=== PATIENT | female | born 1995 | race Caucasian/White ===

== ENCOUNTER 2018-05-23 11:29 | Emergency (ER) | payer OTHER, SELFPAY ==
[2018-05-23 11:47] VITALS: BP 133/70; PULSE 92; RESP 16; TEMP 36.8; O2SAT 98; BMI 24.7
--- NOTE | 2018-05-23 12:24 | ED.HA ---
HPI - Headache <JULIUS Hernandez - Last Filed: 05/23/18 13:20> General Chief Complaint: Headache Stated Complaint: HEADACHE, LUMP BEHIND EAR Time Seen by Provider: 05/23/18 12:24 Source: patient Mode of arrival: ambulatory Limitations: no limitations History of Present Illness HPI Narrative: c/o consistent daily headaches for 3 mos or longer, saw here pcp at [facility] the other day, labs done, and pending mri scheduled, headache just keeps coming back so she came in, has not taken any meds for it MD Complaint: headache Onset (ago): month(s) (3) Onset description: gradual Location: right, frontal, temporal and parietal Severity: moderate Quality: throbbing Exacerbating factors: none Associated symptoms: none Treatments prior to arrival: none Related Data Previous Rx's Medication Instructions Recorded tramadol [Ultram] 50 mg PO Q6H PRN #20 tab 05/23/18 Allergies Allergy/AdvReac Type Severity Reaction Status Date / Time No Known Allergies Allergy Uncoded 05/23/18 11:55 <Rosalinda Sotelo DO - Last Filed: 05/24/18 07:45> History of Present Illness HPI Narrative: Patient requests to be evaluated by a different provider. 23-year-old female complaining of headaches ongoing for 3-4 months. She says over the last week at it has gotten worse and over the last 2 days she has had worsening symptoms. Over the last 2 days she has had vision changes and persistent vomiting. No blacking of vision or persistent vision loss. But she does have some blurry vision in her right eye. She feels like she has a lump behind her right ear is a. She has been checked multiple times for infections as he has never had an ear infection. She denies having any fever no neck pain no numbness tingling or weakness. She does typically get headaches on her right side she takes NSAIDs for than the usually help. However this headache is abnormal for her. She was seen evaluated at the [facility] yesterday she is scheduled for an MRI next week. She had blood work last week as well which she said is normal. MD Complaint: headache Review of Systems <JULIUS Hernandez - Last Filed: 05/23/18 13:20> Review of Systems All systems reviewed & are unremarkable except as noted in HPI and below Constitutional Reports as per HPI and Reports headache(s) Eyes Denies blurry vision, Denies change in vision and Denies loss of vision ENT Ears, Nose, Mouth, and Throat: Denies vertigo, Denies dizziness, Denies otalgia, Reports headache(s), Denies nasal congestion, Denies nasal discharge and Denies neck pain Cardiovascular Denies chest pain and Denies dyspnea Respiratory Denies dyspnea Gastrointestinal Gastrointestinal: Denies vomiting Musculoskeletal Denies back pain, Denies neck pain and Denies numbness Neurologic Reports as per HPI, Denies vertigo, Denies dizziness, Reports headache(s), Denies focal weakness, Denies loss of vision, Denies numbness and Denies other visual disturbances Exam <JULIUS Hernandez - Last Filed: 05/23/18 13:20> Initial Vital Signs Initial Vital Signs: Vital Signs Temperature 98.3 F 05/23/18 11:47 Pulse Rate 92 H 05/23/18 11:47 Respiratory Rate 16 05/23/18 11:47 Blood Pressure 133/70 05/23/18 11:47 Pulse Oximetry 98 05/23/18 11:47 Const General: cooperative, healthy appearing, comfortable, well developed and well groomed Nutritional Appearance: average body habitus Orientation: alert, awake and oriented x3 HENMT Head: normal to inspection, normocephalic and atraumatic Ears: hearing grossly normal bilaterally, external ears normal, TM's normal bilaterally and mastoids normal Nose: external nose normal and nares normal Face and sinus: normal facial exam and sinuses tender Mouth: oral mucosae normal Teeth and gingiva: dentition normal Throat: posterior oropharynx normal Eyes General: appearance normal, both eyes and all related structures Visual Bartlett: normal visual bartlett by confrontation Alignment and Position: alignment normal Eyelids: eyelids normal Conjunctivae: conjunctivae normal Sclera: sclerae normal Cornea: corneas normal Pupils: PERRL EOM: EOM intact bilaterally Direct ophthalmoscopy: normal light reflex Neck Neck: normal visual inspection, full ROM, no meningeal signs, trachea midline, supple and No lymphadenopathy Chest Chest: normal inspection of the chest Resp Effort & Inspection: normal respiratory effort and able to speak in complete sentences Auscultation: clear to auscultation bilaterally Cardio Palpation: normal PMI Rate: regular rate Rhythm: regular rhythm Heart Sounds: S1 normal and S2 normal Back/Spine/Pelvis Back: normal to inspection Cervical Spine: cervical ROM normal Thoracic/Lumbar Spine: thoraco-lumbar ROM normal Skin General: no rashes or lesions noted, elasticity normal and turgor normal Neuro General: alert, awake and oriented x3 Cranial Nerves: CN's II-XI intact bilaterally Cognition: normal cognition Speech: speech normal Gait: normal gait Motor: muscle tone normal throughout Sensory Exam: no sensory deficits noted Extrem General: normal to inspection and full ROM Psych Appearance: grossly normal and well kempt Mental Status: mental status grossly normal Speech and Movement: speech and movement normal Affect: normal affect Attitude: cooperative <Rosalinda Sotelo DO - Last Filed: 05/24/18 07:45> Initial Vital Signs Initial Vital Signs: Vital Signs Temperature 98.3 F 05/23/18 11:47 Pulse Rate 92 H 05/23/18 11:47 Respiratory Rate 16 05/23/18 11:47 Blood Pressure 133/70 05/23/18 11:47 Pulse Oximetry 98 05/23/18 11:47 GENERAL: Well-appearing, well-nourished and in no acute distress. HEENT: Head atraumatic,EOMI, pupils reactive, face symmetric, wound tender lump behind right ear over mastoid, no erythema movable CARDIOVASCULAR: Regular rate and rhythm without murmurs, rubs or gallops. RESPIRATORY: Breath sounds equal bilaterally, no wheezes rales or rhonchi. ABDOMEN: Soft, nontender. Normoactive bowel sounds all 4 quadrants. No guarding or rebound. EXTREMITIES: Normal range of motion, no clubbing or edema. Neurovascularly intact NEUROLOGICAL: Alert and oriented x4.Normal gait and speech. Cranial nerves II through XII grossly intact. Good [id number], good [id number], strength equal bilaterally, no dysarthria or aphasia, sensation in tact to soft touch bilaterally, no visual changes, no facial droop SKIN: Warm, dry, no laceration, no petechiae, no rashes or lesions. Course <JULIUS Hernandez - Last Filed: 05/23/18 13:20> Course Narrative: tx options discussed,m pt encouraged to f/u with pcp at [facility] for mri as pending, agreed that CT was not warranted today, with no new symptoms, no neuro deficits, same continuous headache, pt was placed on oxygen upon my entering of room, as headache may also be cluster headache Orders Ordered: Discontinued Medications Ketorolac Tromethamine (Toradol) 60 mg IM NOW ONE Stop: 05/23/18 12:31 Last Admin: 05/23/18 12:48 Dose: 60 mg Vital Signs - 8 hr 05/23/18 11:47 05/23/18 13:49 Temperature 98.3 F Pulse Rate 92 H 79 Respiratory Rate 16 14 Blood Pressure 133/70 Blood Pressure [Left Arm] 114/83 Pulse Oximetry 98 98 <Rosalinda Sotelo DO - Last Filed: 05/24/18 07:45> Orders Ordered: Discontinued Medications Ketorolac Tromethamine (Toradol) 60 mg IM NOW ONE Stop: 05/23/18 12:31 Last Admin: 05/23/18 12:48 Dose: 60 mg Vital Signs - 8 hr 05/23/18 11:47 05/23/18 13:49 Temperature 98.3 F Pulse Rate 92 H 79 Respiratory Rate 16 14 Blood Pressure 133/70 Blood Pressure [Left Arm] 114/83 Pulse Oximetry 98 98 MDM - Headache <JULIUS Hernandez - Last Filed: 05/23/18 13:20> Differential Diagnosis Differential diagnosis: Likely migraine, tension headache, subarachnoid hemorrhage, headache and other Lab Data Point of Care Testing Test Results Negative <DO Félix Glass Last Filed: 05/24/18 07:45> Lab Data Point of Care Testing Test Results Negative Imaging Data CT scan - head: Radiologist's impression: PROCEDURE: US SCROTUM INDICATIONS: elevated right testicle TECHNIQUE: Real-time scanning was performed of the scrotum and testicles, with image documentation. Color and pulse Doppler interrogation was performed of both testicles. COMPARISON: [facility], , TESTICLE IMAGING, 04/30/2016, 10:37. FINDINGS: Right: Testicle is normal in size at 3.9 x 3.3 x 2.0 cm, and homogenous in echotexture. Epididymis is normal in overall size and morphology. No hydrocele or varicoceles. Overlying scrotal skin is normal in thickness. Left: Testicle is normal in size at 3.2 x 2.4 x 2.3 cm, and homogeneous in echotexture. Epididymis is normal in overall size and morphology. There is a small left hydrocele. No varicocele. Overlying scrotal skin is normal in thickness. Doppler: Color and pulse Doppler demonstrate normal and symmetric arterial flow in both testicles. IMPRESSION: #1. No ultrasound evidence of testicular torsion. #2. Small left hydrocele. Dictated by: Tra Woody M.D. on 05/23/2018 at 16:27 MDM Narrative Medical decision making narrative: The patient's headache is roughly the same head CT is negative. She has an MRI scheduled for this week and close outpatient follow-up. I did recommend her to the headache Clinic. Discharge Plan Departure Patient Disposition: Home Clinical Impression: Headache Discharge Date/Time: 05/23/18 15:12 Interventions: ED Discharge Assessment Last Done: 05/23/18 15:12 Instructions: Cluster Headache, DI for Headache, DI for Cluster Headache Prescriptions: New tramadol [Ultram] 50 mg tablet 50 mg PO Q6H PRN (Reason: pain) Qty: 20 RF: 0 Referrals: [facility] [employer] [facility] [Provider Group] (in 3-5 days )
--- NOTE | 2018-05-23 12:40 | ED_ITS ---
HPI - Headache <JULIUS Hernandez - Last Filed: 05/23/18 13:20> General Chief Complaint: Headache Stated Complaint: HEADACHE, LUMP BEHIND EAR Time Seen by Provider: 05/23/18 12:24 Source: patient Mode of arrival: ambulatory Limitations: no limitations History of Present Illness HPI Narrative: c/o consistent daily headaches for 3 mos or longer, saw here pcp at [facility] the other day, labs done, and pending mri scheduled, headache just keeps coming back so she came in, has not taken any meds for it MD Complaint: headache Onset (ago): month(s) (3) Onset description: gradual Location: right, frontal, temporal and parietal Severity: moderate Quality: throbbing Exacerbating factors: none Associated symptoms: none Treatments prior to arrival: none Related Data Previous Rx's Medication Instructions Recorded tramadol [Ultram] 50 mg PO Q6H PRN #20 tab 05/23/18 Allergies Allergy/AdvReac Type Severity Reaction Status Date / Time No Known Allergies Allergy Uncoded 05/23/18 11:55 <Rosalinda Sotelo DO - Last Filed: 05/24/18 07:45> History of Present Illness HPI Narrative: Patient requests to be evaluated by a different provider. 23-year-old female complaining of headaches ongoing for 3-4 months. She says over the last week at it has gotten worse and over the last 2 days she has had worsening symptoms. Over the last 2 days she has had vision changes and persistent vomiting. No blacking of vision or persistent vision loss. But she does have some blurry vision in her right eye. She feels like she has a lump behind her right ear is a. She has been checked multiple times for infections as he has never had an ear infection. She denies having any fever no neck pain no numbness tingling or weakness. She does typically get headaches on her right side she takes NSAIDs for than the usually help. However this headache is abnormal for her. She was seen evaluated at the [facility] yesterday she is scheduled for an MRI next week. She had blood work last week as well which she said is normal. MD Complaint: headache Review of Systems <JULIUS Hernandez - Last Filed: 05/23/18 13:20> Review of Systems All systems reviewed & are unremarkable except as noted in HPI and below Constitutional Reports as per HPI and Reports headache(s) Eyes Denies blurry vision, Denies change in vision and Denies loss of vision ENT Ears, Nose, Mouth, and Throat: Denies vertigo, Denies dizziness, Denies otalgia , Reports headache(s), Denies nasal congestion, Denies nasal discharge and Denies neck pain Cardiovascular Denies chest pain and Denies dyspnea Respiratory Denies dyspnea Gastrointestinal Gastrointestinal: Denies vomiting Musculoskeletal Denies back pain, Denies neck pain and Denies numbness Neurologic Reports as per HPI, Denies vertigo, Denies dizziness, Reports headache(s), Denies focal weakness, Denies loss of vision, Denies numbness and Denies other visual disturbances Exam <JULIUS Hernandez - Last Filed: 05/23/18 13:20> Initial Vital Signs Initial Vital Signs: Vital Signs Temperature 98.3 F 05/23/18 11:47 Pulse Rate 92 H 05/23/18 11:47 Respiratory Rate 16 05/23/18 11:47 Blood Pressure 133/70 05/23/18 11:47 Pulse Oximetry 98 05/23/18 11:47 Const General: cooperative, healthy appearing, comfortable, well developed and well groomed Nutritional Appearance: average body habitus Orientation: alert, awake and oriented x3 HENMT Head: normal to inspection, normocephalic and atraumatic Ears: hearing grossly normal bilaterally, external ears normal, TM's normal bilaterally and mastoids normal Nose: external nose normal and nares normal Face and sinus: normal facial exam and sinuses tender Mouth: oral mucosae normal Teeth and gingiva: dentition normal Throat: posterior oropharynx normal Eyes General: appearance normal, both eyes and all related structures Visual Bartlett: normal visual bartlett by confrontation Alignment and Position: alignment normal Eyelids: eyelids normal Conjunctivae: conjunctivae normal Sclera: sclerae normal Cornea: corneas normal Pupils: PERRL EOM: EOM intact bilaterally Direct ophthalmoscopy: normal light reflex Neck Neck: normal visual inspection, full ROM, no meningeal signs, trachea midline, supple and No lymphadenopathy Chest Chest: normal inspection of the chest Resp Effort & Inspection: normal respiratory effort and able to speak in complete sentences Auscultation: clear to auscultation bilaterally Cardio Palpation: normal PMI Rate: regular rate Rhythm: regular rhythm Heart Sounds: S1 normal and S2 normal Back/Spine/Pelvis Back: normal to inspection Cervical Spine: cervical ROM normal Thoracic/Lumbar Spine: thoraco-lumbar ROM normal Skin General: no rashes or lesions noted, elasticity normal and turgor normal Neuro General: alert, awake and oriented x3 Cranial Nerves: CN's II-XI intact bilaterally Cognition: normal cognition Speech: speech normal Gait: normal gait Motor: muscle tone normal throughout Sensory Exam: no sensory deficits noted Extrem General: normal to inspection and full ROM Psych Appearance: grossly normal and well kempt Mental Status: mental status grossly normal Speech and Movement: speech and movement normal Affect: normal affect Attitude: cooperative <Rosalinda Sotelo DO - Last Filed: 05/24/18 07:45> Initial Vital Signs Initial Vital Signs: Vital Signs Temperature 98.3 F 05/23/18 11:47 Pulse Rate 92 H 05/23/18 11:47 Respiratory Rate 16 05/23/18 11:47 Blood Pressure 133/70 05/23/18 11:47 Pulse Oximetry 98 05/23/18 11:47 GENERAL: Well-appearing, well-nourished and in no acute distress. HEENT: Head atraumatic,EOMI, pupils reactive, face symmetric, wound tender lump behind right ear over mastoid, no erythema movable CARDIOVASCULAR: Regular rate and rhythm without murmurs, rubs or gallops. RESPIRATORY: Breath sounds equal bilaterally, no wheezes rales or rhonchi. ABDOMEN: Soft, nontender. Normoactive bowel sounds all 4 quadrants. No guarding or rebound. EXTREMITIES: Normal range of motion, no clubbing or edema. Neurovascularly intact NEUROLOGICAL: Alert and oriented x4.Normal gait and speech. Cranial nerves II through XII grossly intact. Good [id number]-bm-[id number], good mbcz-[id number]-asyf, strength equal bilaterally, no dysarthria or aphasia, sensation in tact to soft touch bilaterally, no visual changes, no facial droop SKIN: Warm, dry, no laceration, no petechiae, no rashes or lesions. Course <JULIUS Hernandez - Last Filed: 05/23/18 13:20> Course Narrative: tx options discussed,m pt encouraged to f/u with pcp at [facility] for mri as pending, agreed that CT was not warranted today, with no new symptoms, no neuro deficits, same continuous headache, pt was placed on oxygen upon my entering of room, as headache may also be cluster headache Orders Ordered: Discontinued Medications Ketorolac Tromethamine (Toradol) 60 mg IM NOW ONE Stop: 05/23/18 12:31 Last Admin: 05/23/18 12:48 Dose: 60 mg Vital Signs - 8 hr 05/23/18 11:47 05/23/18 13:49 Temperature 98.3 F Pulse Rate 92 H 79 Respiratory Rate 16 14 Blood Pressure 133/70 Blood Pressure [Left Arm] 114/83 Pulse Oximetry 98 98 <Rosalinda Sotelo DO - Last Filed: 05/24/18 07:45> Orders Ordered: Discontinued Medications Ketorolac Tromethamine (Toradol) 60 mg IM NOW ONE Stop: 05/23/18 12:31 Last Admin: 05/23/18 12:48 Dose: 60 mg Vital Signs - 8 hr 05/23/18 11:47 05/23/18 13:49 Temperature 98.3 F Pulse Rate 92 H 79 Respiratory Rate 16 14 Blood Pressure 133/70 Blood Pressure [Left Arm] 114/83 Pulse Oximetry 98 98 MDM - Headache <JULIUS Hernandez - Last Filed: 05/23/18 13:20> Differential Diagnosis Differential diagnosis: Likely migraine, tension headache, subarachnoid hemorrhage, headache and other Lab Data Point of Care Testing Test Results Negative <DO Félix Glass Last Filed: 05/24/18 07:45> Lab Data Point of Care Testing Test Results Negative Imaging Data CT scan - head: Radiologist's impression: PROCEDURE: US SCROTUM INDICATIONS: elevated right testicle TECHNIQUE: Real-time scanning was performed of the scrotum and testicles, with image documentation. Color and pulse Doppler interrogation was performed of both testicles. COMPARISON: [facility], , TESTICLE IMAGING, 04/30/2016, 10:37. FINDINGS: Right: Testicle is normal in size at 3.9 x 3.3 x 2.0 cm, and homogenous in echotexture. Epididymis is normal in overall size and morphology. No hydrocele or varicoceles. Overlying scrotal skin is normal in thickness. Left: Testicle is normal in size at 3.2 x 2.4 x 2.3 cm, and homogeneous in echotexture. Epididymis is normal in overall size and morphology. There is a small left hydrocele. No varicocele. Overlying scrotal skin is normal in thickness. Doppler: Color and pulse Doppler demonstrate normal and symmetric arterial flow in both testicles. IMPRESSION: #1. No ultrasound evidence of testicular torsion. #2. Small left hydrocele. Dictated by: Tra Woody M.D. on 05/23/2018 at 16:27 MDM Narrative Medical decision making narrative: The patient's headache is roughly the same head CT is negative. She has an MRI scheduled for this week and close outpatient follow-up. I did recommend her to the headache Clinic. Discharge Plan Departure Patient Disposition: Home Clinical Impression: Headache Discharge Date/Time: 05/23/18 15:12 Interventions: ED Discharge Assessment Last Done: 05/23/18 15:12 Instructions: Cluster Headache, DI for Headache, DI for Cluster Headache Prescriptions: New tramadol [Ultram] 50 mg tablet 50 mg PO Q6H PRN (Reason: pain) Qty: 20 RF: 0 Referrals: [facility] [employer] [facility] [Provider Group] (in 3-5 days )
[2018-05-23] MEDS: KETOROLAC 60 MG/2 ML VIAL IM (12:48)
[2018-05-23 13:49] VITALS: BP 114/83; PULSE 79; RESP 14; O2SAT 98
--- NOTE | 2018-05-23 14:00 | DI.CT.S_ITS ---
PROCEDURE: CT HEAD/BRAIN WO CON INDICATIONS: abnormal headache TECHNIQUE: Noncontrast 4.5 mm thick angled axial sections acquired from the foramen magnum to the vertex, with coronal and sagittal reformats. For radiation dose reduction, the following was used: automated exposure control, adjustment of mA and/or kV according to patient size. COMPARISON: None. FINDINGS: Image quality: Excellent. CSF spaces: Basal cisterns are patent. No extra-axial fluid collections. Ventricles are normal in size and shape. Brain: No midline shift. No intracranial masses or hemorrhage. Sidhu-white matter interface is normal. Skull and face: Calvarium and visualized facial bones are intact, without suspicious lesions. There is a 1.0 cm subcutaneous soft tissue nodule posterior to the right ear, as marked by the overlying radiopaque BB, without underlying osseous erosion. Sinuses: Visualized sinuses and mastoids are clear. IMPRESSION: #1. No acute intracranial abnormality. #2. 1.0 cm subcutaneous soft tissue nodule posterior to the right ear, as marked by the overlying radiopaque BB. Dictated by: Tra Woody M.D. on 05/23/2018 at 14:30 Approved by: Tra Woody M.D. on 05/23/2018 at 14:46
[2018-05-23 14:53] VITALS: BP 122/87; PULSE 88; RESP 16; O2SAT 99
== END 2018-05-23 15:12 | disposition home or self-care (01) ==
PROVIDERS: Emergency Provider Emergency Medicine
DX: R51 Headache (principal)
CPT/HCPCS: 70450; 81025; 96372; 99283; 99284; J1885

== ENCOUNTER → 2018-11-22 16:35 | Outpatient (CLI) | payer OTHER, SELFPAY ==
[2018-11-22 17:23] LABS: Influenza A and B by PCR Rapid Negative (Negative)
== END ==
PROVIDERS: Visit Provider Physician Assistant
DX: R68.89 Other general symptoms and signs (principal)
CPT/HCPCS: 87400

== ENCOUNTER → 2018-11-25 15:42 | Outpatient (CLI) | payer OTHER, SELFPAY | PROVIDERS: Visit Provider Physician Assistant | DX: J11.1 Influenza due to unidentified influenza virus with other respiratory manifestations (principal) | CPT/HCPCS: 87400 ==

== ENCOUNTER → 2018-11-25 15:56 | Outpatient (CLI) | payer OTHER, SELFPAY ==
--- NOTE | 2018-11-25 15:59 | DI.RAD.S_ITS ---
PROCEDURE: XR CHEST 2V INDICATIONS: worsening cough and chest tightness TECHNIQUE: 2 views of the chest were acquired. COMPARISON: None. FINDINGS: Surgical changes and devices: None. Lungs and pleura: Lungs are clear. No pleural effusions or pneumothorax. Mediastinum: Mediastinal contours are normal. Heart size is normal. Bones and chest wall: No suspicious bony abnormalities. Soft tissues appear unremarkable. IMPRESSION: No acute cardiopulmonary disease process. Dictated by: Tina Gonzalez MD, PhD on 11/25/2018 at 16:38 Approved by: Tina Gonzalez MD, PhD on 11/25/2018 at 16:39
[2018-11-25 16:38] LABS: D Dimer < 200 ng/mL (<230)
== END ==
PROVIDERS: Visit Provider Physician Assistant
DX: R05 Cough (principal); J11.1 Influenza due to unidentified influenza virus with other respiratory manifestations
CPT/HCPCS: 36415; 71046; 85379

== ENCOUNTER → 2019-07-03 11:41 | Outpatient (CLI) | payer OTHER, SELFPAY | PROVIDERS: Visit Provider Physician Assistant | DX: J02.9 Acute pharyngitis, unspecified (principal) | CPT/HCPCS: 87070 ==

== ENCOUNTER 2020-12-09 12:55 | Emergency (ER) | payer OTHER, SELFPAY ==
[2020-12-09 13:03] VITALS: BP 136/73; PULSE 82; RESP 16; TEMP 36.3; O2SAT 97; BMI 22.4
[2020-12-09 13:56] VITALS: BP 136/73; PULSE 75; RESP 16; O2SAT 98
--- NOTE | 2020-12-09 15:13 | ED_ITS ---
HPI - Dental/Oral General Chief complaint: Dental/Oral Stated complaint: [place] Teeth Out 5Wks Ago, Pain and Swelling Time Seen by Provider: 12/09/20 15:04 Source: patient Mode of arrival: Ambulatory Limitations: no limitations History of Present Illness HPI Narrative: This is a 25-year-old female comes emergency department with complaint of pain and swelling at the site of her wisdom tooth (tooth #17) that was removed 5 weeks ago. Patient states that that area had healed over very quickly and her dentist told her she may potentially developed an infection in there as it healed so quickly. The patient did not have any issues until the last several days. She developed some mild discomfort which has increased rapidly over the last 12-24 hours. She has appreciate some swelling of that she with pain toward the ear and left neck. Patient has appreciated some foul tasting drainage and a little bit of odor. She has not been able to visualize any drainage. Patient has not appreciated any difficulty with breathing, no swelling of her airway, tongue or lips. She has not had any fevers. She denies any nausea or vomiting. She has attempted ibuprofen and Tylenol [id number] with moderate improvement until recently. She denies other medical issues. No known allergies. She has follow-up with her dentist on this coming Thursday but was concerned that it may continue to worsen rapidly. Related Data Previous Rx's Medication Instructions Recorded penicillin V potassium 500 mg PO Q6H 10 Days #40 tab 12/09/20 Allergies Allergy/AdvReac Type Severity Reaction Status Date / Time No Known Allergies Allergy Uncoded 05/23/18 11:55 Review of Systems Review of Systems ROS Unobtainable: All systems reviewed & are unremarkable except as noted in HPI and below Patient History Social History Smoking Status: Former smoker Smoking Status: Former smoker alcohol intake frequency: 0-2 drinks per day Substance Use Type: marijuana Exam Narrative Exam Narrative: GEN: well nourished, well appearing female, alert and oriented x 3, patient appears to be in mild distress. HEENT: Atraumatic, pupils are equal round reactive to light, extraocular movements are intact, nares are clear, TMs are clear with no fluid, there is no conjunctival pallor. Throat is clear without any exudates, erythema, tonsillar enlargement or uvular deviation, patient does have some mild swelling of the left cheek as well as the mucosa. There is no obvious abscess or swelling at the teeth but she does have some generalized swelling adjacent to tooth #17 in the soft tissue. There is no obvious active drainage. Patient is tender over that area. There is no area of fluctuance able to be palpated on the inner cheek or outer face. She does not have any other bony tenderness with palpation. No other rashes or skin changes are noted. HEART: Regular rate and rhythm without murmur, clicks, rubs. LUNGS:Lungs clear to auscultation, no wheezes, rales, crackles, chest moves symmetrically ABD:bowel sounds normal, soft, non-tender, no guarding, rebound, rigidity, no masses noted, no hepatosplenomegaly MSCL: full range of motion, normal gait NEURO:CN 2-12 intact, sensation normal Initial Vital Signs Initial Vital Signs: Vital Signs Temperature 97.4 F L 12/09/20 13:03 Pulse Rate 82 12/09/20 13:03 Respiratory Rate 16 12/09/20 13:03 Blood Pressure 136/73 12/09/20 13:03 Pulse Oximetry 97 12/09/20 13:03 Course Vital Signs Vital signs: Vital Signs - 8 hr 12/09/20 13:03 12/09/20 13:56 Temperature 97.4 F L Pulse Rate 82 75 Respiratory Rate 16 16 Blood Pressure 136/73 136/73 Pulse Oximetry 97 98 MDM - Dental/Oral MDM Narrative Medical decision making narrative: No clear abscess is appreciated but patient does have swelling with recent dental instrumentation 5 weeks ago. Plan to [facility] and patient has follow-up this coming week. Plan to continue with ibuprofen and Tylenol for pain. Discharge Plan Departure Patient Disposition: Home Clinical Impression: Dental infection, [place] teeth removed Instructions: Tooth Abscess Activity Restrictions/Additional Instructions: Follow up with your dentist at your appointment this week. Take antibiotics until they are completely gone unless your dentist direction otherwise. Antibiotics were sent to [facility] in [place]. You may take ibuprofen up to 800 mg every 8 hours and/or Tylenol up to a 1000 mg every 8 hours Gargle and spit 4 times daily with warm salt water Please return for fevers increasing redness, swelling of face, swelling of her lips, tongue, airway, stridor high-pitched wheezing, severe headaches, persistent vomiting or other new or concerning symptoms. Prescriptions: New penicillin V potassium 500 mg tablet 500 mg PO Q6H 10 Days Qty: 40 RF: 0 Referrals: Meghan Perez DO [Primary Care Provider] -
== END 2020-12-09 15:36 | disposition home or self-care (01) ==
PROVIDERS: Emergency Provider Emergency Medicine; PCP Family Medicine
DX: K04.7 Periapical abscess without sinus (principal); K08.409 Partial loss of teeth, unspecified cause, unspecified class
CPT/HCPCS: 99281